=== PATIENT | female | born 1995 | race Two or more races ===

== ENCOUNTER 2017-04-12 19:48 | Emergency (ER) | payer MEDICAID ==
[~2017-04-12] VITALS: Ht 154.9 cm; Wt 67.1 kg
[~2017-04-12 19:48] MED LIST: KEFLEX500 MG ORAL; NKM
[2017-04-12] MEDS ORDERED: IBUPROFEN600 MG ORAL ×2 (20:05→23:19)
--- NOTE | 2017-04-12 20:24 | Emergency Room Report ---
History of Present Illness General Chief Complaint: Headache Source: Patient Present Illness HPI Patient presents with headache. She's had it for over a year intermittently. It worsened last 2 days. It's right-sided frontal. She feels like it's grabbing her. She has photophobia. No aura. Is no vomiting, but some nausea. Pain 8/10. constant for last 2 days. She's been seen by student [facility] however no labs or imaging is been done. She had medicine prescribed to her earlier however this has not been helping. Initially was related to stress. She stress is related to studies. She completed her studies and at this time she feels that her stress is less. Her Mom feels the stress is still high. She denies any fevers. She does feel some dizziness. Her last period was normal. She denies any dysuria or change in bowels. Allergies: Coded Allergies: No Known Allergies (Unverified , 06/11/16) Patient History Past Medical History: see triage record Social History: Denies: alcohol use, smoking Social History Narrative Last Menstrual Period: Now: No : 0 Para: 0 Reviewed Nursing Documentation: PMH: Agreed, PSxH: Agreed Nursing Documentation-PMH Past Medical History: No Stated History Review of Systems All Other Systems: negative except mentioned in HPI Physical Exam Vital Signs Date Time Temp Pulse Resp B/P Pulse Ox O2 Delivery O2 Flow Rate FiO2 04/12/17 20:01 98.2 101 14 98/62 100 Room Air Sp02 EP Interpretation: reviewed, normal General Appearance: well appearing, no apparent distress, GCS 15 Head: normocephalic Eyes: bilateral eye PERRL, bilateral eye normal inspection ENT: moist mucus membranes Neck: supple, tender - mild posteriorly Respiratory: lungs clear, normal breath sounds Cardiovascular #1: regular rate, rhythm Cardiovascular #2: 2+ radial (R) Gastrointestinal: normal inspection, normal bowel sounds, non tender, no mass, non-distended Musculoskeletal: back normal, gait/station normal, normal range of motion Neurologic: alert, oriented x3, 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 DDx stress, tension, migraine, cluster amongst others. Not the worst in her life but no imaging studies or labs have been perform. CT of the head, labs including separates and urinalysis have been ordered and are indicated due to nature of headache.. The patient be treated with Toradol IV. CT negative. Labs with minimal elevation of sed rate. Rest normal except for pyuria. Started on antibiotics. Improved with treatment and reassurance. Patient stable for outpatient observation and treatment. Labs Test 04/12/17 20:45 04/12/17 21:00 White Blood Count 9.3 K/UL (4.8-10.8) Red Blood Count 4.44 M/UL (4.20-5.40) Hemoglobin 13.5 G/DL (12.0-16.0) Hematocrit 40.1 % (37.0-47.0) Mean Corpuscular Volume 90 FL (80-99) Mean Corpuscular Hemoglobin 30.4 PG (27.0-31.0) Mean Corpuscular Hemoglobin Concent 33.6 G/DL (32.0-36.0) Red Cell Distribution Width 11.6 % (11.6-14.8) Platelet Count 264 K/UL (150-450) Mean Platelet Volume 9.9 FL (6.5-10.1) Neutrophils (%) (Auto) 64.3 % (45.0-75.0) Lymphocytes (%) (Auto) 25.0 % (20.0-45.0) Monocytes (%) (Auto) 8.8 % (1.0-10.0) Eosinophils (%) (Auto) 1.0 % (0.0-3.0) Basophils (%) (Auto) 0.9 % (0.0-2.0) Erythrocyte Sedimentation Rate 23 MM/HR (0-20) Urine Color Pale yellow Urine Appearance Clear Urine pH 6 (4.5-8.0) Urine Specific Tad 1.015 (1.005-1.035) Urine Protein Negative (NEGATIVE) Urine Glucose (UA) Negative (NEGATIVE) Urine Ketones Negative (NEGATIVE) Urine Occult Blood 5+ (NEGATIVE) Urine Nitrite Negative (NEGATIVE) Urine Bilirubin Negative (NEGATIVE) Urine Urobilinogen Normal MG/DL (0.0-1.0) Urine Leukocyte Esterase 3+ (NEGATIVE) Urine RBC 10-15 /HPF (0 - 2) Urine WBC 5-10 /HPF (0 - 2) Urine Squamous Epithelial Cells Moderate /LPF (NONE/OCC) Urine Amorphous Sediment Few /LPF (NONE) Urine Bacteria Moderate /HPF (NONE) Urine Fatty Casts /LPF (NONE) Urine HCG, Qualitative Negative Sodium Level 142 mEQ/L (135-145) Potassium Level 3.8 mEQ/L (3.4-4.9) Chloride Level 103 mEQ/L (98-107) Carbon Dioxide Level 25 mEQ/L (20-30) Anion Gap 14 (5-15) Blood Urea Nitrogen 12 mg/dL (7-23) Creatinine 0.7 mg/dL (0.5-0.9) Estimat Glomerular Filtration Rate > 60 mL/min (>60) Glucose Level 105 mg/dL (74-106) Calcium Level 9.3 mg/dL (8.6-10.2) Total Bilirubin < 0.2 mg/dL (0.0-1.2) Aspartate Amino Transf (AST/SGOT) 30 U/L (5-40) Alanine Aminotransferase (ALT/SGPT) 40 U/L (3-33) Alkaline Phosphatase 57 U/L (35-104) Total Creatine Kinase 66 U/L (26-140) Total Protein 7.5 g/dL (6.6-8.7) Albumin 4.2 g/dL (3.5-5.2) Globulin 3.3 g/dL Albumin/Globulin Ratio 1.2 (1.0-2.7) Prothrombin Time 9.8 SEC (9.30-11.50) Prothromb Time International Ratio 0.9 (0.9-1.1) Activated Partial Thromboplast Time 25 SEC (23-33) CT/MRI/US Diagnostic Results CT/MRI/US Diagnostic Results : Imaging Test Ordered: head Impression nl brain, bones, ST Last Vital Signs Date Time Temp Pulse Resp B/P Pulse Ox O2 Delivery O2 Flow Rate FiO2 04/12/17 23:28 09/2904/12/17 23:27 98.2 14 100 Room Air 04/12/17 20:01 101 Status: improved Disposition: HOME, SELF-CARE Condition: Improved Scripts Ibuprofen* (MOTRIN*) 600 Mg Tablet 600 MG ORAL Q6H Y for For Pain, #20 TAB Prov: Darryl Flores M.D. 04/12/17 Tramadol Hcl* (ULTRAM*) 50 Mg Tablet 50 MG ORAL Q6H Y for For Pain, #10 TAB 0 Refills Prov: Darryl Flores M.D. 04/12/17 Nitrofurantoin Monohyd/M-Cryst* (MACROBID 100 MG*) 100 Mg Capsule 100 MG ORAL EVERY 12 HOURS, #14 CAP Prov: Darryl Flores M.D. 04/12/17 Darryl Flores M.D. Apr 12, 2017 20:24
[2017-04-12 20:30] VITALS: BP 98/62
[2017-04-12] MEDS ORDERED: Ketorolac 30mg Inj IV ONE (20:30)
[2017-04-12 21:17] LABS: BASOPHILS % (AUTO) 0.9 % (0.0-2.0); MEAN CORPUSCULAR HEMOGLOBIN 30.4 PG (27.0-31.0); MEAN CORPUSCULAR HGB CONC 33.6 G/DL (32.0-36.0); MEAN CORPUSCULAR VOLUME 90 FL (80-99); MEAN PLATELET VOLUME 9.9 FL (6.5-10.1); MONOCYTES % (AUTO) 8.8 % (1.0-10.0); NEUTROPHILS % (AUTO) 64.3 % (45.0-75.0); PLATELET COUNT 264 K/UL (150-450); RED BLOOD COUNT 4.44 M/UL (4.20-5.40); RED CELL DISTRIBUTION WIDTH 11.6 % (11.6-14.8); WHITE BLOOD COUNT 9.3 K/UL (4.8-10.8)
[2017-04-12 21:20] LABS: APPEARANCE,URINE CLEAR; KETONES,URINE NEGATIVE (NEGATIVE); LEUKOCYTE ESTERASE ,URINE 3+ (NEGATIVE); NITRITE,URINE NEGATIVE (NEGATIVE); PH,URINE 6 (4.5-8.0); PROTEIN,URINE NEGATIVE (NEGATIVE); UROBILINOGEN,URINE NORMAL MG/DL (0.0-1.0)
[2017-04-12 21:36] LABS: AMORPHOUS SEDIMENT,UR FEW /LPF; BACTERIA,URINE MODERATE /HPF; SQUAMOUS EPITHELIAL CELL,UR MODERATE /LPF (NONE/OCC)
[2017-04-12 21:42] LABS: INR 0.9 (0.9-1.1); PROTHROMBIN TIME 9.8 SEC (9.30-11.50)
[2017-04-12 21:46] LABS: ALANINE AMINOTRANSFERASE 40 U/L (3-33); ALBUMIN/GLOBULIN RATIO 1.2 (1.0-2.7); ANION GAP 14 (5-15); ASPARTATE AMINO TRANSFERASE 30 U/L (5-40); CALCIUM 9.3 mg/dL (8.6-10.2); CARBON DIOXIDE 25 mEQ/L (20-30); CHLORIDE 103 mEQ/L (98-107); CREATININE 0.7 mg/dL (0.5-0.9); GLOMERULAR FILTRATION RATE > 60 mL/min (>60); HEMOLYSIS 59; POTASSIUM 3.8 mEQ/L (3.4-4.9); SODIUM 142 mEQ/L (135-145); TOTAL PROTEIN 7.5 g/dL (6.6-8.7)
[2017-04-12 22:21] LABS: ERYTHROCYTE SEDIMENTATION RATE 23 MM/HR (0-20)
[2017-04-12] MEDS ORDERED: TRAMADOL HCL50 MG ORAL (23:19)
[2017-04-12] MEDS ORDERED: NITROFURANTOIN100 M2 ORAL (23:19)
[2017-04-12 23:27] VITALS: BP 98/62
[2017-04-12 23:28] VITALS: BP 1/1
--- NOTE | 2017-04-13 09:36 | Diagnostic Imaging Report ---
Indication: Headache Technique: Continuous helical CT scanning of the head was performed utilizing automated exposure control without intravenous contrast material. Axial and coronal reconstructions were obtained. Comparison: None CT dose: Total DLP 1277 mGycm; CTDI vol 70.4 mGy Findings: There is no acute intracranial hemorrhage, mass effect or cortical edema. The ventricles, cisterns and sulci are within normal limits. The posterior fossa and fourth ventricle are unremarkable. Sellar and suprasellar regions are grossly unremarkable. Visualized mastoid air cells and paranasal sinuses are unremarkable. No focal lesions of the bony calvarium or soft tissues of the scalp are seen. Impression: No evidence of acute intracranial hemorrhage, mass effect or cortical edema. MRI may be obtained for more sensitive evaluation as clinically indicated. The CT scanner at [facility] is accredited by the [employer] and the scans are performed using protocols designed to limit radiation exposure to as low as reasonably achievable to attain images of sufficient resolution adequate for diagnostic evaluation.
== END 2017-04-12 23:30 | disposition home or self-care (01) ==
LOC: EMR 20:30
DX: R51 Headache (principal); N39.0 Urinary tract infection, site not specified; R70.0 Elevated erythrocyte sedimentation rate
CPT/HCPCS: 36415; 70450; 80053; 81003; 81025; 82550; 85025; 85610; 85651; 85730; 87086; 96374; 99284; J1885

== ENCOUNTER 2017-08-12 15:41 | Emergency (ER) | payer MEDICAID ==
[~2017-08-12] VITALS: Ht 152.4 cm; Wt 61.2 kg
[~2017-08-12 15:41] MED LIST changes: +IBUPROFEN600 MG ORAL; +NITROFURANTOIN100 M2 ORAL; +TRAMADOL HCL50 MG ORAL
[2017-08-12 16:00] VITALS: BP 118/58
--- NOTE | 2017-08-12 16:13 | Emergency Room Report ---
History of Present Illness General Chief Complaint: Chest Pain Source: Patient Present Illness HPI 22-year-old female with no sig pmhx, p/w chest pain for 4 hours. Chest pain started gradually. Localized to substernal area, no radiation to back or other areas, sharp in nature, gradual in onset, lasts only a few seconds. multiple episodes. Worsened with movement or twisting motion. Worsened with deep inspiration. Denies palpitations, diaphoresis, n/v. Denies shortness of breath This is the first occurrence of chest pain. Denies fever, chills, cough, abd pain, recent viral illness. Denies trauma. Denies cardiac history, smoking, or family history of cardiac disease at a young age. Denies history of PE/DVT, no recent surgeries, prolonged immobilzation, malignancy, or use of OCPs/HRT. Allergies: Coded Allergies: No Known Allergies (Unverified , 06/11/16) Patient History Past Medical History: see triage record Past Surgical History: none Pertinent Family History: none Now: No Reviewed Nursing Documentation: PMH: Agreed, PSxH: Agreed Nursing Documentation-PMH Past Medical History: No History, Except For Hx Asthma: Yes Review of Systems All Other Systems: negative except mentioned in HPI Physical Exam Vital Signs Date Time Temp Pulse Resp B/P (MAP) Pulse Ox O2 Delivery O2 Flow Rate FiO2 08/12/17 15:45 98.1 93 20 106/74 99 Room Air Sp02 EP Interpretation: reviewed, normal General Appearance: normal inspection, well appearing, no apparent distress, alert, GCS 15, non-toxic Head: normocephalic, atraumatic Eyes: bilateral eye normal inspection, bilateral eye PERRL, bilateral eye EOMI ENT: normal ENT inspection, normal pharynx, normal voice, moist mucus membranes Neck: normal inspection, full range of motion, supple Respiratory: normal inspection, lungs clear, normal breath sounds, no respiratory distress, no retraction, no wheezing, speaking full sentences, chest symmetrical Cardiovascular #1: normal inspection, regular rate, rhythm, no edema, normal capillary refill Cardiovascular #2: 2+ radial (R), 2+ radial (L) Gastrointestinal: normal inspection, non tender, soft, non-distended, no guarding Musculoskeletal: normal inspection, back normal, normal range of motion, non- tender Neurologic: normal inspection, alert, oriented x3, responsive, motor strength/ tone normal, sensory intact, normal gait, speech normal Psychiatric: normal inspection, judgement/insight normal, memory normal Skin: normal inspection, normal color, no rash, warm/dry, well hydrated, normal turgor Medical Decision Making Diagnostic Impression: Primary Impression: Chest pain ER Course 22-year-old female with no sig pmhx p/w chest pain Plan: musculoskeletal CP/costochondritis vs. pneumothorax vs. gastritis/GERD PE less likely given history and physical examination, not hypoxic/tachycardic, no risk factors, PERC negative. ACS less likely given age/history Plan: NSAIDs, EKG, CXR Anticipate DC home as patient appears clinically well. ER course: Patient was treated NSAIDs with improvement of pain. Patient remains well appearing in ED. Disposition: Patient will be discharged to home with a prescription of motrin. Strict precautions discussed with patient on when to emergently return to the ED : this includes worsening/severe chest pain, palpitations, shortness of breath, syncopal episodes, fever or chills, which may indicate severe illness. Patient verbalized understanding. Patient instructed to follow up with their PMD within the next 2 days. Patient agrees with plan. Please note that this Emergency Department Report was dictated using [employer] maker technology software, occasionally this can lead to erroneous entry secondary to interpretation by the dictation equipment. EKG Diagnostic Results EP Interpretation: Yes Rate: normal Rhythm: NSR ST Segments: No acute changes ASA given to patient: no Rhythm Strip EP Interpretation: Yes Rate: 75 Rhythm: NSR, no PVCs, no ectopy Chest X-ray CXR: Ordered: Yes 1 view Indication: Chest pain EP interpretation: Yes Interpretation: No consolidation, no effusion, no PTX, no acute cardiopulmonary disease Impression: No acute disease Electronically signed by Sona Springer MD Last Vital Signs Date Time Temp Pulse Resp B/P (MAP) Pulse Ox O2 Delivery O2 Flow Rate FiO2 08/12/17 16:01 86 19 Room Air 08/12/17 16:00 98.1 118/58 100 Disposition: HOME, SELF-CARE Condition: Stable Patient Instructions: Nonspecific Chest Pain Sona Springer M.D. Aug 12, 2017 16:13
[2017-08-12 16:37] VITALS: BP_SYST 102; BP_DIAS 53; BP_DIAS 58
--- NOTE | 2017-08-13 09:04 | Diagnostic Imaging Report ---
Indication: Chest pain Technique: One view of the chest Comparison: none Findings: Lungs and pleural spaces are clear. Heart size is normal Impression: No acute process
--- NOTE | 2017-08-13 16:30 | Cardiology Report ---
APPROVED REPORT EKG Measurement Heart [id number] Normal sinus rhythm Low voltage QRS Borderline ECG
== END 2017-08-12 16:37 | disposition home or self-care (01) ==
LOC: EMR 16:17
DX: R07.9 Chest pain, unspecified (principal)
CPT/HCPCS: 71010; 93005; 99283